=== PATIENT | female | born 1950 | race Caucasian/White ===

== ENCOUNTER 2017-04-17 08:15 | Observation (INO) | payer OTHER ==
[2017-04-11 14:47] LABS: BASOPHILS 0.5 %; BASOPHILS ABSOLUTE 0.03 10/3/uL (0.0-0.16); EOSINOPHILS 1.2 %; EOSINOPHILS ABSOLUTE 0.08 10/3/uL (0.0-0.53); HEMATOCRIT 41.1 % (36.0-48.0); IMMATURE GRANULOCYTES 0.3 %; IMMATURE GRANULOCYTES ABSOLUTE 0.02 10/3/uL (0.0-0.11); LYMPHOCYTES 19.6 %; LYMPHOCYTES ABSOLUTE 1.26 10/3/uL (0.67-4.30); MEAN CORPUS HGB CONC 31.6 g/dL (32.0-36.0); MEAN CORPUSCULAR HEMOGLOB 28.9 pg (26.0-34.0); MEAN CORPUSCULAR VOLUME 91.3 fL (80-100); MEAN PLATELET VOLUME 10.3 fL (9.2-13.0); MONOCYTES 15.2 %; MONOCYTES ABSOLUTE 0.98 10/3/uL (0.21-1.20); NEUTROPHILS 63.2 %; NEUTROPHILS ABSOLUTE 4.06 10/3/uL (2.02-8.40); PLATELET COUNT 267 10/3/uL (150-400); RBC DISTRIBUTION WIDTH 13.4 % (12.0-16.0); WHITE BLOOD CELLS 6.4 10/3/uL (4.5-10.5)
[2017-04-11 14:50] LABS: MANUAL DIFF NO %
[2017-04-11 14:56] LABS: INTERNATIONAL NORMAL RATI 1.1 UNITS (-); PARTIAL THROMBO TIME 34.2 SEC (22.5-37.2); PROTIME (NOT ORD) 13.7 SEC (12.0-14.5)
[2017-04-11 14:57] LABS: ASCORBIC ACID (UR NOT ORDER) NEG (NEG); BILIRUBIN, URINE NEGATIVE (NEG); KETONE, URINE NEGATIVE (NEG); LEUKOCYTE ESTERASE(NOT OR NEG (NEG); WBC (NOT ORDERED) (RFLEX) 1 (0-5)
[2017-04-11 14:59] LABS: BUN (BLOOD UREA NITROGEN) 17 MG/DL (6-23); CALCIUM, SERUM 9.5 MG/DL (8.5-10.4); CHLORIDE, SERUM 108 MMOL/L (96-112); CO2 (CARBON DIOXIDE) 29 MMOL/L (24-34); CREATININE 0.74 MG/DL (0.55-1.02); GFR AFRICAN AMERICAN 96 ML/MIN (>=60); GFR NON AFRICAN AMERICAN 83 ML/MIN (>=60); GLUCOSE, SERUM 91 MG/DL (60-99); POTASSIUM, SERUM 5.1 MMOL/L (3.5-5.3); SODIUM, SERUM 142 MMOL/L (135-148)
--- NOTE | ~2017-04-17 | OP ---
Record Of Operation [facility] [address] [place]. [address] NAME: JOSSELYN FLORES : 46 STATUS : ADM Erin PAT#: [id number] AGE: 66 ADM/REG DATE : 04/17/17 MR#: [id number] REPORT SERV DATE: 04/17/17 DICTATED BY: JOSÉ PLATT DATE: 04/17/17 REPORT STATUS : Draft TRANSCRIBED BY: MODL DATE: 04/17/17 DATE OF PROCEDURE: 04/17/2017 PREOPERATIVE DIAGNOSIS: Pelvic mass. POSTOPERATIVE DIAGNOSIS: Uterine fibroids. PROCEDURE: Robot-assisted laparoscopic hysterectomy with bilateral salpingo-oophorectomy for uterus weighing greater than 250 g. CPT code 41961. Cystoscopy. SURGEON: José Platt MD. ANESTHESIA: General. ESTIMATED BLOOD LOSS: 50 mL. CRYSTALLOID: 2300 mL. URINE OUTPUT: 450 mL. DRAINS: Chen. FINDINGS: Enlarged uterus with enlarged equal size fibroid emanating from the right cornual region. She has hydrosalpinx on the left side and in the area of the left fallopian tube that seemed to be densely adherent to a diverticulum from the sigmoid colon. Otherwise, no peritoneal deformities in the pelvis or upper abdomen. PATHOLOGY: Uterus, uterine cervix, bilateral fallopian tubes and ovaries. COMPLICATIONS: None. POSTOPERATIVE PLAN: Extubated to PACU. PROCEDURE IN DETAIL: After informed consent was signed, the patient was taken the operating room and placed in dorsal supine position where adequate general anesthesia was administered. She was then placed in dorsal lithotomy position in Jaime stirrups, and prepped and draped in usual fashion. A Chen catheter was placed. The uterus was sounded. Cervix dilated and the FARHAD uterine manipulator was assembled and deployed. The left upper quadrant incision was made with a scalpel and carried down to the fascia, which was incised, muscle , posterior sheath entered sharply, trocar placed and abdomen insufflated with CO2 gas. There was a large umbilical hernia noted containing portions of omentum. Separate trocar was placed in the left upper quadrant and using the 5 mm LigaSure device, the omentum was transected at the opening to the umbilical hernia. Next, additional trocars were placed in the supraumbilical region and right upper quadrant all under direct visualization. The patient was then placed in steep Trendelenburg, and the Record Of Operation [facility] [address] [place]. [address] NAME: JOSSELYN FLORES : 46 STATUS : ADM Erin PAT#: [id number] AGE: 66 ADM/REG DATE : 04/17/17 MR#: [id number] REPORT SERV DATE: 04/17/17 DICTATED BY: JOSÉ PLATT DATE: 04/17/17 REPORT STATUS : Draft TRANSCRIBED BY: [email or web address] DATE: 04/17/17 robot docked in the usual fashion. Bilateral round ligaments were taken with bipolar cautery, transected with monopolar scissors, and the pelvic peritoneum was taken down lateral and parallel to the infundibulopelvic ligaments. The patient had an extraordinary amount of retroperitoneal fat, however, both ureters were identified and reflected medially, and clips were placed in the origins of the uterine arteries bilaterally. The infundibulopelvic ligaments were then isolated, taken with bipolar cautery, transected with monopolar scissors. The left hydrosalpinx was densely adherent to an epiploic off the lateral aspect of the sigmoid colon on the left side. There were dense adhesions. No obvious ruptured diverticulum was noted but this certainly could have been the reason for the dense adhesions. These adhesions were taken down using sharp dissection and the area of adhesions was then oversewn with 2-0 silk suture. The broad ligaments were then taken down to the level of the cervix and a posterior colpotomy was made. Next, the vesicouterine peritoneum was then incised and the bladder was taken down well beneath the level of the anterior TESSIE ring. The anterior colpotomy was made. Next, the uterine vessels were then taken the cervix with bipolar cautery, transected with monopolar scissors, and the parametria reflected off the cervical stroma. The anterior and posterior colpotomies then connected using monopolar scissors, and the uterus, uterine cervix, and bilateral adnexa were then brought out through the vagina. The vagina was then closed with zero 180 V-Loc suture with a running stitch. Next, all instruments were removed from the abdomen. The robot was undocked. The CO2 gas was evacuated. The Chen catheter was then removed and the cystoscope was placed through the urethra and the bladder was distended with appropriate media. Bilateral brisk ureteral jets were noted suggesting bilateral ureteral patency. The cystoscope was removed and the bladder drained. CO2 gas was then reintroduced into the abdomen, and using the laparoscope, the pelvis was re-examined and found to be hemostatic. Mary had been applied to the pelvic peritoneum previously. The laparoscope and all trocars were then removed from the abdomen. CO2 gas evacuated. The fascia from the supraumbilical and left upper quadrant incisions were closed with 0 Vicryl suture and the skin from all trocar sites were closed with 4-0 Monocryl and Dermabond. The patient tolerated the procedure well and was placed back in dorsal supine position, awakened, extubated, and sent to the PACU in stable condition. JAGJIT/LUCY José Platt MD / [id number] CC: MD TOM Millan PABLO
[~2017-04-17 08:15] MED LIST: ADVAIR250 INH; CRESTOR20 MG PO; GLUCPH PO; GLUMETZA500 MG PO; L20 PO; NEUR300 PO; NORCO1 TA2 PO; PEP20 PO; PRILOSEC40 MG PO; PRIN10 PO; PROAIR HFA INH; SINGULAIR1 PO; SPIRIVA INH; TOPXL50 PO; TRICOR48 PO; ZETIA PO
[2017-04-18 06:47] LABS: BASOPHILS 0.3 %; BASOPHILS ABSOLUTE 0.02 10/3/uL (0.0-0.16); EOSINOPHILS 0.5 %; EOSINOPHILS ABSOLUTE 0.04 10/3/uL (0.0-0.53); HEMOGLOBIN 11.6 g/dL (12.0-16.0); IMMATURE GRANULOCYTES 0.3 %; IMMATURE GRANULOCYTES ABSOLUTE 0.02 10/3/uL (0.0-0.11); LYMPHOCYTES 15.5 %; LYMPHOCYTES ABSOLUTE 1.16 10/3/uL (0.67-4.30); MEAN CORPUS HGB CONC 31.8 g/dL (32.0-36.0); MEAN CORPUSCULAR HEMOGLOB 29.1 pg (26.0-34.0); MEAN CORPUSCULAR VOLUME 91.7 fL (80-100); MONOCYTES 15.1 %; MONOCYTES ABSOLUTE 1.13 10/3/uL (0.21-1.20); NEUTROPHILS 68.3 %; NEUTROPHILS ABSOLUTE 5.09 10/3/uL (2.02-8.40); PLATELET COUNT 194 10/3/uL (150-400); RBC DISTRIBUTION WIDTH 13.7 % (12.0-16.0); RED CELL COUNT 3.98 10/6/uL (4.0-5.6); WHITE BLOOD CELLS 7.5 10/3/uL (4.5-10.5)
[2017-04-18 06:58] LABS: HEMATOCRIT 36.5 % (36.0-48.0); MANUAL DIFF NO %
[2017-04-18 07:03] LABS: BUN (BLOOD UREA NITROGEN) 8 MG/DL (6-23); CALCIUM, SERUM 8.6 MG/DL (8.5-10.4); CHLORIDE, SERUM 110 MMOL/L (96-112); CO2 (CARBON DIOXIDE) 25 MMOL/L (24-34); GFR AFRICAN AMERICAN 76 ML/MIN (>=60); GFR NON AFRICAN AMERICAN 66 ML/MIN (>=60); GLUCOSE, SERUM 101 MG/DL (60-99); POTASSIUM, SERUM 4.7 MMOL/L (3.5-5.3); SODIUM, SERUM 141 MMOL/L (135-148)
[2017-04-18] MEDS ORDERED: BIST PO (09:24)
[2017-04-18] MEDS ORDERED: PCET PO (09:28)
[2017-04-18] MEDS ORDERED: COMP10B PO (09:28)
[2017-06-06] MEDS ORDERED: PEP20 PO (15:57)
[2017-06-06] MEDS ORDERED: BENTYL10 PO (15:58)
[2017-06-06] MEDS ORDERED: ADVAIR250 INH (15:59)
[2017-06-06] MEDS ORDERED: VITAMIN D1000 UNI1 PO (16:00)
[2017-06-12] MEDS ORDERED: PCET PO (13:45)
== END 2017-04-18 11:58 | disposition home or self-care (01) ==
LOC: SDC 08:15 → SDC/OF 13:24 → 4EA 14:34
PROVIDERS: Obstetrics & Gynecology Gynecology
PROC: 0UT24ZZ Resection of Bilateral Ovaries, Percutaneous Endoscopic Approach (ICD-10-PCS; 2017-04-17)
PROC: 0UT74ZZ Resection of Bilateral Fallopian Tubes, Percutaneous Endoscopic Approach (ICD-10-PCS; 2017-04-17)
PROC: 0UT94ZZ Resection of Uterus, Percutaneous Endoscopic Approach (ICD-10-PCS; principal; 2017-04-17 10:00)
PROC: 0UTC4ZZ Resection of Cervix, Percutaneous Endoscopic Approach (ICD-10-PCS; 2017-04-17 10:00)
DX: N84.0 Polyp of corpus uteri (principal); N80.0 Endometriosis of uterus; D25.2 Subserosal leiomyoma of uterus; N83.202 Unspecified ovarian cyst, left side; I10 Essential (primary) hypertension; E11.9 Type 2 diabetes mellitus without complications; E78.5 Hyperlipidemia, unspecified; E78.00 Pure hypercholesterolemia, unspecified; G47.33 Obstructive sleep apnea (adult) (pediatric); J44.9 Chronic obstructive pulmonary disease, unspecified; J45.909 Unspecified asthma, uncomplicated; F32.9 Major depressive disorder, single episode, unspecified; K21.9 Gastro-esophageal reflux disease without esophagitis; K46.9 Unspecified abdominal hernia without obstruction or gangrene; K22.10 Ulcer of esophagus without bleeding; E66.01 Morbid (severe) obesity due to excess calories; Z68.44 Body mass index [BMI] 60.0-69.9, adult; Z88.5 Allergy status to narcotic agent; Z99.89 Dependence on other enabling machines and devices; Z98.84 Bariatric surgery status; Z96.643 Presence of artificial hip joint, bilateral; Z90.89 Acquired absence of other organs; Z79.84 Long term (current) use of oral hypoglycemic drugs; Z79.51 Long term (current) use of inhaled steroids; Z79.899 Other long term (current) drug therapy; Z98.890 Other specified postprocedural states
CPT/HCPCS: 36415; 71020; 80048; 81001; 82962; 85025; 85610; 85730; 86850; 86870; 86900; 86901; 88307; 88309; 93005; 94640; 96374; 96376; A9270-GY; G0378; J0694; J2250; J2270; J2550; J3010